=== PATIENT | female | born 1935 | race Caucasian/White ===

== ENCOUNTER 2017-01-24 01:56 | Emergency (ER) | payer MEDICARE, BC ==
[~2017-01-24] VITALS: Ht 162.6 cm; Wt 62.0 kg
[~2017-01-24 01:56] MED LIST: ACET-1600 PO; AMLO5TAB2 PO; ASCO500T8 PO; ASPI-515 PO; ATOR40TA78 PO; CARB1TAB22 PO; CARB1TAB43 PO; CHOL200012 PO; CRANBERRY PILLS PO; DILT30TA33 PO; DONE10TA14 PO; FOLI-17 PO; GLUC-149 PO; LEVO75TA5 PO; MIRT15TA4 PO; QUET25TA5 PO; TROS20TA2 PO
[2017-01-24 03:23] VITALS: BP 124/63
== END 2017-01-24 03:25 | disposition home or self-care (01) ==
LOC: ED 02:47
DX: S09.90XA Unspecified injury of head, initial encounter (principal); W18.39XA Other fall on same level, initial encounter; Y93.89 Activity, other specified; Y92.009 Unspecified place in unspecified non-institutional (private) residence as the place of occurrence of the external cause; Y99.9 Unspecified external cause status; E03.9 Hypothyroidism, unspecified; E78.00 Pure hypercholesterolemia, unspecified
CPT/HCPCS: 70450; 99284

== ENCOUNTER 2018-01-26 11:56 | Inpatient (IN) | payer MEDICARE, BC ==
[~2018-01-26] VITALS: Ht 157.5 cm; Wt 51.8 kg
[~2018-01-26 11:56] MED LIST changes: -CHOL200012 PO; +CHOL200074 PO
[2018-01-26 14:15] LABS: ALBUMIN 3.4 g/dL (3.4-5.0); ANION GAP 6 mmol/L (5-15); CALCIUM 8.5 mg/dL (8.5-10.1); CHLORIDE 111 mmol/L (98-107); CREATININE 0.82 mg/dL (0.55-1.02)
[2018-01-26] MEDS ORDERED: MIRT15TA4 PO (14:29)
[2018-01-26] MEDS ORDERED: DILT30TA33 PO (14:29)
[2018-01-26] MEDS ORDERED: MEMA5TAB PO (14:29)
[2018-01-26] MEDS ORDERED: POLY17PO3 PO (14:29)
[2018-01-26] MEDS ORDERED: DOCU-186 PO (14:29)
[2018-01-26] MEDS ORDERED: ACET500C3 PO (14:29)
[2018-01-26] MEDS ORDERED: MIRA50TA PO (14:29)
[2018-01-26] MEDS ORDERED: MELA1TAB22 PO (14:29)
[2018-01-26] MEDS ORDERED: DONE10TA14 PO (14:29)
[2018-01-26] MEDS ORDERED: GLUC1CAP48 PO (14:29)
[2018-01-26] MEDS ORDERED: CETI10TA32 PO (14:29)
[2018-01-26] MEDS ORDERED: FAMO-79 PO (14:29)
[2018-01-26] MEDS ORDERED: SODIUM CHLORIDE FLUSH 10ML SYR IVF PRN (14:30)
[2018-01-26 15:21] LABS: BASOPHILS % (AUTO) 0 % (0-1); EOSINOPHILS % (AUTO) 0 % (1-7); LYMPHOCYTES # (AUTO) 0.44 x10^3/uL (1-3.4); LYMPHOCYTES % (AUTO) 3 % (22-44); MD SCAN; MEAN CORPUSCULAR HEMOGLOBIN 30.1 pg (27.0-34.8); MEAN CORPUSCULAR HGB CONC 33.2 g/dL (32.4-35.8); MEAN CORPUSCULAR VOLUME 90.7 fL (80-100); MEAN PLATELET VOLUME 9.1 fL (7.4-10.4); MONOCYTES # (AUTO) 0.87 x10^3/uL (0.2-0.8); MONOCYTES % (AUTO) 6 % (2-9); NEUTROPHILS # (AUTO) 12.71 x10^3/uL (1.8-6.8); NEUTROPHILS % (AUTO) 91 % (42-75); PLATELET COUNT 71 x10^3/uL (130-400); RED BLOOD COUNT 4.47 x10^6/uL (3.82-5.3)
[2018-01-26] MEDS ORDERED: ENOXAPARIN 40 MG/0.4 ML SQ SCH (16:30)
[2018-01-26] MEDS ORDERED: LABETALOL 5MG/ML, 20ML IVPush PRN (16:30)
[2018-01-26] MEDS ORDERED: ONDANSETRON 2MG/ML, 2ML IVPush PRN (16:30)
[2018-01-26] MEDS ORDERED: ONDANSETRON ODT 4 MG PO PRN (16:30)
[2018-01-26 17:08] LABS: FREE T4 (FREE THYROXINE) 1.19 ng/dL (0.76-1.46)
[2018-01-26] MEDS: CARBIDOPA/LEVODOPA 25 MG/100 MG TABLET PO SCH ×2 (18:00→19:34)
[2018-01-26] MEDS ORDERED: CARBIDOPA/LEVODOPA CR 25 MG/100 MG TABLET PO SCH (18:00)
[2018-01-26] MEDS: SODIUM CHLORIDE 0.9% 1,000 ML IV SCH (18:49)
[2018-01-26] MEDS: DILTIAZEM 30 MG TABLET PO SCH (19:30)
[2018-01-26 20:06] VITALS: BP 137/79
[2018-01-26] MEDS ORDERED: MEMANTINE 5MG TABLET PO SCH (21:00)
[2018-01-26] MEDS ORDERED: FAMOTIDINE 20 MG TABLET PO SCH (21:00)
[2018-01-26] MEDS: ACETAMINOPHEN 325 MG TABLET PO PRN (22:01)
[2018-01-26] MEDS: CHOLECALCIFEROL 1,000 UNIT TABLET PO SCH (22:02)
[2018-01-26 22:28] VITALS: BP 137/79
[2018-01-27 02:00] VITALS: BP 99/57
[2018-01-27 04:48] LABS: ALBUMIN 2.9 g/dL (3.4-5.0); ANION GAP 9 mmol/L (5-15); CALCIUM 8.2 mg/dL (8.5-10.1); CHLORIDE 112 mmol/L (98-107)
[2018-01-27 05:00] LABS: CREATININE 0.65 mg/dL (0.55-1.02)
[2018-01-27 05:01] LABS: ALANINE AMINOTRANSFERASE 7 U/L (12-78); ALKALINE PHOSPHATASE 68 U/L (45-117); BILIRUBIN,TOTAL 0.9 mg/dL (0.2-1.0); THYROID STIMULATING HORMONE 0.291 mIU/L (0.358-3.740)
[2018-01-27 05:02] LABS: MEAN CORPUSCULAR HEMOGLOBIN 30.2 pg (27.0-34.8); MEAN CORPUSCULAR HGB CONC 33.2 g/dL (32.4-35.8); MEAN CORPUSCULAR VOLUME 91.1 fL (80-100); RED BLOOD COUNT 3.65 x10^6/uL (3.82-5.3); RED CELL DISTRIBUTION WIDTH 14.8 % (9.6-15.2)
[2018-01-27] MEDS: SODIUM CHLORIDE 0.9% 1,000 ML IV SCH ×2 (05:46→08:04)
[2018-01-27 06:28] LABS: BASOPHILS # (AUTO) 0.04 x10^3/uL (0-0.1); BASOPHILS % (AUTO) 0 % (0-1); EOSINOPHILS # (AUTO) 0.13 x10^3/uL (0-0.4); EOSINOPHILS % (AUTO) 1 % (1-7); LYMPHOCYTES # (AUTO) 1.01 x10^3/uL (1-3.4); LYMPHOCYTES % (AUTO) 11 % (22-44); MD SCAN; MEAN PLATELET VOLUME 9.2 fL (7.4-10.4); MONOCYTES # (AUTO) 1.03 x10^3/uL (0.2-0.8); MONOCYTES % (AUTO) 11 % (2-9); NEUTROPHILS # (AUTO) 7.01 x10^3/uL (1.8-6.8); NEUTROPHILS % (AUTO) 76 % (42-75); PLATELET COUNT 53 x10^3/uL (130-400)
[2018-01-27 06:46] VITALS: BP 165/54
[2018-01-27] MEDS: MEMANTINE 5MG TABLET PO SCH ×2 (07:21→15:45)
[2018-01-27] MEDS: CARBIDOPA/LEVODOPA 25 MG/100 MG TABLET PO SCH ×7 (07:21→20:29)
[2018-01-27] MEDS: CARBIDOPA/LEVODOPA CR 25 MG/100 MG TABLET PO SCH ×4 (07:22→20:29)
[2018-01-27] MEDS ORDERED: LEVOTHYROXINE 75 MCG TABLET PO SCH (09:00)
[2018-01-27] MEDS ORDERED: DILTIAZEM 30 MG TABLET PO SCH (09:00)
[2018-01-27] MEDS: CHOLECALCIFEROL 1,000 UNIT TABLET PO SCH ×2 (09:21→20:30)
[2018-01-27] MEDS: DONEPEZIL 10 MG TABLET PO SCH (09:22)
[2018-01-27] MEDS: ACETAMINOPHEN 325 MG TABLET PO PRN ×2 (09:22→18:20)
[2018-01-27] MEDS: FAMOTIDINE 20 MG TABLET PO SCH ×2 (09:22→17:27)
[2018-01-27] MEDS: SENNA/DOCUSATE TABLET PO SCH (09:22)
[2018-01-27] MEDS ORDERED: CARBIDOPA/LEVODOPA CR 25 MG/100 MG TABLET PO SCH ×2 (13:30→19:30)
[2018-01-27 13:56] VITALS: BP 124/72
[2018-01-27 18:21] VITALS: BP 132/75
[2018-01-27] MEDS: DILTIAZEM 30 MG TABLET PO SCH (19:30)
[2018-01-28] MEDS: ACETAMINOPHEN 325 MG TABLET PO PRN ×2 (01:17→19:37)
[2018-01-28] MEDS: SODIUM CHLORIDE 0.9% 1,000 ML IV SCH ×2 (02:19→19:58)
[2018-01-28 02:24] VITALS: BP 167/81
[2018-01-28 04:59] LABS: MEAN CORPUSCULAR HEMOGLOBIN 30.6 pg (27.0-34.8); MEAN CORPUSCULAR HGB CONC 33.7 g/dL (32.4-35.8); MEAN CORPUSCULAR VOLUME 90.9 fL (80-100); MEAN PLATELET VOLUME 11.1 fL (7.4-10.4); PLATELET COUNT 59 x10^3/uL (130-400)
[2018-01-28 05:03] LABS: CHLORIDE 115 mmol/L (98-107)
[2018-01-28 05:11] LABS: ALANINE AMINOTRANSFERASE 8 U/L (12-78); ALBUMIN 2.9 g/dL (3.4-5.0); ALKALINE PHOSPHATASE 91 U/L (45-117); ANION GAP 8 mmol/L (5-15); BILIRUBIN,TOTAL 0.6 mg/dL (0.2-1.0); CALCIUM 7.9 mg/dL (8.5-10.1); CREATININE 0.81 mg/dL (0.55-1.02); TOTAL PROTEIN 6.2 g/dL (6.4-8.2)
[2018-01-28 05:30] LABS: BASOPHILS # (AUTO) 0.04 x10^3/uL (0-0.1); BASOPHILS % (AUTO) 1 % (0-1); EOSINOPHILS # (AUTO) 0.14 x10^3/uL (0-0.4); EOSINOPHILS % (AUTO) 2 % (1-7); LYMPHOCYTES # (AUTO) 0.76 x10^3/uL (1-3.4); LYMPHOCYTES % (AUTO) 9 % (22-44); MD SCAN; MONOCYTES # (AUTO) 0.53 x10^3/uL (0.2-0.8); MONOCYTES % (AUTO) 7 % (2-9); NEUTROPHILS # (AUTO) 6.61 x10^3/uL (1.8-6.8); NEUTROPHILS % (AUTO) 82 % (42-75)
[2018-01-28 06:46] VITALS: BP 176/78
[2018-01-28] MEDS: CARBIDOPA/LEVODOPA 25 MG/100 MG TABLET PO SCH ×7 (07:38→19:37)
[2018-01-28] MEDS: CARBIDOPA/LEVODOPA CR 25 MG/100 MG TABLET PO SCH ×4 (07:38→19:37)
[2018-01-28] MEDS: MEMANTINE 5MG TABLET PO SCH ×2 (07:38→15:47)
[2018-01-28] MEDS: DONEPEZIL 10 MG TABLET PO SCH (09:00)
[2018-01-28] MEDS: FAMOTIDINE 20 MG TABLET PO SCH ×2 (09:33→17:51)
[2018-01-28] MEDS: CHOLECALCIFEROL 1,000 UNIT TABLET PO SCH ×2 (09:34→19:58)
[2018-01-28] MEDS: SENNA/DOCUSATE TABLET PO SCH (09:34)
[2018-01-28] MEDS: NEUTRA PHOS K 250 MG TABLET PO SCH ×3 (11:51→19:55)
[2018-01-28 12:25] VITALS: BP 172/96
[2018-01-28 19:20] VITALS: BP 165/88
[2018-01-28] MEDS: DILTIAZEM 30 MG TABLET PO SCH (19:30)
[2018-01-28] MEDS ORDERED: CARBIDOPA/LEVODOPA CR 25 MG/100 MG TABLET PO SCH (19:30)
[2018-01-29 01:13] VITALS: BP 153/78
[2018-01-29 07:20] VITALS: BP_SYST 176; BP_SYST 199; BP_DIAS 89; BP_DIAS 90
[2018-01-29 07:39] LABS: ANION GAP 6 mmol/L (5-15); CALCIUM 8.2 mg/dL (8.5-10.1); CHLORIDE 115 mmol/L (98-107); CREATININE 0.49 mg/dL (0.55-1.02)
[2018-01-29 07:55] LABS: BASOPHILS % (AUTO) 0 % (0-1); EOSINOPHILS # (AUTO) 0.12 x10^3/uL (0-0.4); EOSINOPHILS % (AUTO) 2 % (1-7); LYMPHOCYTES # (AUTO) 0.94 x10^3/uL (1-3.4); LYMPHOCYTES % (AUTO) 12 % (22-44); MD SCAN; MEAN CORPUSCULAR HEMOGLOBIN 29.7 pg (27.0-34.8); MEAN PLATELET VOLUME 9.9 fL (7.4-10.4); MONOCYTES # (AUTO) 0.49 x10^3/uL (0.2-0.8); MONOCYTES % (AUTO) 6 % (2-9); NEUTROPHILS # (AUTO) 6.47 x10^3/uL (1.8-6.8); NEUTROPHILS % (AUTO) 81 % (42-75); PLATELET COUNT 70 x10^3/uL (130-400); RED BLOOD COUNT 3.76 x10^6/uL (3.82-5.3)
[2018-01-29] MEDS: CARBIDOPA/LEVODOPA 25 MG/100 MG TABLET PO SCH ×7 (08:03→19:32)
[2018-01-29] MEDS: CARBIDOPA/LEVODOPA CR 25 MG/100 MG TABLET PO SCH ×5 (08:03→19:42)
[2018-01-29] MEDS: SENNA/DOCUSATE TABLET PO SCH (08:43)
[2018-01-29] MEDS: ACETAMINOPHEN 325 MG TABLET PO PRN ×2 (08:43→20:45)
[2018-01-29] MEDS: MEMANTINE 5MG TABLET PO SCH ×2 (08:43→16:49)
[2018-01-29] MEDS: NEUTRA PHOS K 250 MG TABLET PO SCH ×3 (08:44→20:46)
[2018-01-29] MEDS: CHOLECALCIFEROL 1,000 UNIT TABLET PO SCH ×2 (08:44→20:46)
[2018-01-29] MEDS: DONEPEZIL 10 MG TABLET PO SCH (08:45)
[2018-01-29] MEDS: FAMOTIDINE 20 MG TABLET PO SCH ×2 (08:46→17:17)
[2018-01-29 14:00] VITALS: BP 134/70
[2018-01-29] MEDS: SODIUM CHLORIDE 0.9% 1,000 ML IV SCH (14:12)
[2018-01-29] MEDS: DILTIAZEM 30 MG TABLET PO SCH (19:30)
[2018-01-29 19:50] VITALS: BP 150/87
[2018-01-30 01:16] VITALS: BP 142/83
[2018-01-30] MEDS: SODIUM CHLORIDE 0.9% 1,000 ML IV SCH ×2 (03:30→03:31)
[2018-01-30 07:03] VITALS: BP 197/94
[2018-01-30] MEDS: MEMANTINE 5MG TABLET PO SCH (07:29)
[2018-01-30] MEDS: CARBIDOPA/LEVODOPA CR 25 MG/100 MG TABLET PO SCH ×2 (07:30→11:27)
[2018-01-30] MEDS: CARBIDOPA/LEVODOPA 25 MG/100 MG TABLET PO SCH ×3 (07:30→11:26)
[2018-01-30 07:31] LABS: ALBUMIN 2.5 g/dL (3.4-5.0); ANION GAP 8 mmol/L (5-15); CALCIUM 7.6 mg/dL (8.5-10.1); CHLORIDE 114 mmol/L (98-107); CREATININE 0.56 mg/dL (0.55-1.02)
[2018-01-30] MEDS ORDERED: CARBIDOPA/LEVODOPA CR 25 MG/100 MG TABLET PO PRN (09:00)
[2018-01-30] MEDS: SENNA/DOCUSATE TABLET PO SCH (09:00)
[2018-01-30 09:35] VITALS: BP 135/65
[2018-01-30] MEDS: NEUTRA PHOS K 250 MG TABLET PO SCH (09:36)
[2018-01-30] MEDS: DONEPEZIL 10 MG TABLET PO SCH (09:37)
[2018-01-30] MEDS: FAMOTIDINE 20 MG TABLET PO SCH (09:37)
[2018-01-30] MEDS: CHOLECALCIFEROL 1,000 UNIT TABLET PO SCH (09:37)
[2018-01-30] MEDS ORDERED: DILT30TA33 PO (10:43)
[2018-01-30] MEDS ORDERED: MAGNESIUM SULFATE PMX 2GM/50ML 50 ML IV ONE (11:00)
[2018-01-30] MEDS ORDERED: POTASSIUM CHLORIDE 20 MEQ TAB.ER.PRT PO ONE (11:00)
[2018-01-30] MEDS ORDERED: ENOXAPARIN 30 MG/0.3 ML SQ SCH (16:00)
== END 2018-01-30 12:21 | disposition home or self-care (01) | DRG 542 ==
LOC: ED 12:06 → EDIP 14:13 → 3NE 16:32
PROVIDERS: ADMIT Internal Medicine; ATTEND Internal Medicine
DX: M84.48XA Pathological fracture, other site, initial encounter for fracture (principal); E43 Unspecified severe protein-calorie malnutrition; D69.6 Thrombocytopenia, unspecified; G20 Parkinson's disease; F03.90 Unspecified dementia, unspecified severity, without behavioral disturbance, psychotic disturbance, mood disturbance, and anxiety; Z95.1 Presence of aortocoronary bypass graft; M84.459A Pathological fracture, hip, unspecified, initial encounter for fracture; E03.9 Hypothyroidism, unspecified; I25.10 Atherosclerotic heart disease of native coronary artery without angina pectoris; R53.81 Other malaise; E78.00 Pure hypercholesterolemia, unspecified; D72.829 Elevated white blood cell count, unspecified; W18.39XA Other fall on same level, initial encounter; I10 Essential (primary) hypertension; K21.9 Gastro-esophageal reflux disease without esophagitis; K59.00 Constipation, unspecified; R29.6 Repeated falls; M81.0 Age-related osteoporosis without current pathological fracture; Z66 Do not resuscitate; Z83.3 Family history of diabetes mellitus; Z68.20 Body mass index [BMI] 20.0-20.9, adult; Z95.5 Presence of coronary angioplasty implant and graft; Z88.6 Allergy status to analgesic agent; Z79.899 Other long term (current) drug therapy; Z79.82 Long term (current) use of aspirin; Y93.89 Activity, other specified; Y99.8 Other external cause status; Y92.128 Other place in nursing home as the place of occurrence of the external cause
CPT/HCPCS: 36415; 72110; 72158; 72170; 72192; 80048; 80053; 82040; 83735; 84100; 84439; 84443; 85025; 99285; J7030

== ENCOUNTER 2018-05-17 20:31 | Inpatient (IN) | payer MEDICARE, BC ==
[~2018-05-17] VITALS: Ht 152.4 cm; Wt 57.2 kg
[~2018-05-17 20:31] MED LIST changes: +ACET500C3 PO; -AMLO5TAB2 PO; +AMLO5TAB7 PO; +CETI10TA32 PO; +DOCU-186 PO; +FAMO-79 PO; +GLUC1CAP48 PO; +MELA1TAB22 PO; +MEMA5TAB PO; +MIRA50TA PO; +POLY17PO3 PO
[2018-05-17] MEDS ORDERED: MORPHINE SULFATE 4 MG/ML, 1ML ONE ×2 (20:48→23:00)
[2018-05-17] MEDS: MORPHINE SULFATE 4 MG/ML, 1ML IVPush PRN ×2 (20:51→23:15)
[2018-05-17] MEDS ORDERED: CARB1TAB22 PO (21:48)
[2018-05-17] MEDS ORDERED: MIRT15TA4 PO (21:49)
[2018-05-17] MEDS ORDERED: CARB1TAB44 PO (21:49)
[2018-05-17] MEDS ORDERED: CARV3.122 PO (21:49)
[2018-05-17] MEDS ORDERED: SUCR1TAB PO (21:49)
[2018-05-17] MEDS ORDERED: LEVO50TA5 PO (21:49)
[2018-05-17] MEDS ORDERED: PANT40TA5 PO (21:49)
[2018-05-17] MEDS ORDERED: CARB1TAB43 PO (21:49)
[2018-05-17] MEDS ORDERED: CETI10TA18 PO (21:49)
[2018-05-17] MEDS ORDERED: GLUC1TAB35 PO (21:49)
[2018-05-17] MEDS ORDERED: [UNRECOGNIZED DRUG - REMARK] PO (21:49)
[2018-05-17] MEDS ORDERED: BISM262O17 PO (21:49)
[2018-05-17] MEDS ORDERED: MEMA5TAB PO (21:49)
[2018-05-17] MEDS ORDERED: CARBIDOPA/LEVODOPA CR 50 MG/200 MG TABLET PO SCH (23:30)
[2018-05-17] MEDS ORDERED: POLYETHYLENE GLYCOL 17 GM PACKET PO PRN (23:30)
[2018-05-17] MEDS ORDERED: CARBIDOPA/LEVODOPA 25 MG/100 MG TABLET PO SCH (23:30)
[2018-05-17] MEDS ORDERED: ONDANSETRON 2MG/ML, 2ML IVPush PRN (23:30)
[2018-05-17] MEDS: CHOLECALCIFEROL 1,000 UNIT TABLET PO SCH (23:30)
[2018-05-17] MEDS ORDERED: BISACODYL 10 MG SUPP PR PRN (23:30)
[2018-05-17] MEDS ORDERED: morphine SULFATE 10 MG/ML, 1ML IVPush PRN (23:30)
[2018-05-18] VITALS (8 sets, daily range): BP systolic 97–182; BP diastolic 54–87
[2018-05-18] MEDS: MIRTAZAPINE 15 MG TABLET PO SCH ×2 (00:31→22:41)
[2018-05-18] MEDS: SODIUM CHLORIDE FLUSH 10ML SYR IVF SCH ×3 (00:31→19:51)
[2018-05-18] MEDS: CARVEDILOL 3.125 MG TABLET PO SCH ×3 (00:31→22:41)
[2018-05-18] MEDS: MEMANTINE 5MG TABLET PO SCH ×2 (00:36→22:41)
[2018-05-18] MEDS: ENALAPRILAT 1.25 MG/ML, 2ML IVPush PRN (02:46)
[2018-05-18 05:33] LABS: MEAN CORPUSCULAR HEMOGLOBIN 30.6 pg (27.0-34.8); MEAN CORPUSCULAR HGB CONC 33.2 g/dL (32.4-35.8); MEAN CORPUSCULAR VOLUME 91.9 fL (80-100); RED BLOOD COUNT 4.11 x10^6/uL (3.82-5.3); RED CELL DISTRIBUTION WIDTH 15.8 % (9.6-15.2)
[2018-05-18 05:37] LABS: CALCIUM 8.5 mg/dL (8.5-10.1); CHLORIDE 109 mmol/L (98-107)
[2018-05-18 05:44] LABS: ALANINE AMINOTRANSFERASE 10 U/L (12-78); ALBUMIN 3.6 g/dL (3.4-5.0); ALKALINE PHOSPHATASE 92 U/L (45-117); ANION GAP 7 mmol/L (5-15); BILIRUBIN,TOTAL 0.4 mg/dL (0.2-1.0); CREATININE 1.02 mg/dL (0.55-1.02); TOTAL PROTEIN 7.2 g/dL (6.4-8.2)
[2018-05-18 05:57] LABS: BASOPHILS # (AUTO) 0.04 x10^3/uL (0-0.1); BASOPHILS % (AUTO) 0 % (0-1); EOSINOPHILS % (AUTO) 1 % (1-7); LYMPHOCYTES # (AUTO) 1.21 x10^3/uL (1-3.4); LYMPHOCYTES % (AUTO) 14 % (22-44); MD SCAN; MEAN PLATELET VOLUME 10.3 fL (7.4-10.4); MONOCYTES # (AUTO) 0.74 x10^3/uL (0.2-0.8); MONOCYTES % (AUTO) 8 % (2-9); NEUTROPHILS # (AUTO) 6.78 x10^3/uL (1.8-6.8); NEUTROPHILS % (AUTO) 77 % (42-75); PLATELET COUNT 91 x10^3/uL (130-400)
[2018-05-18] MEDS ORDERED: LEVOTHYROXINE 50 MCG TABLET PO SCH (07:30)
[2018-05-18] MEDS: CARBIDOPA/LEVODOPA CR 25 MG/100 MG TABLET PO SCH ×3 (07:48→15:25)
[2018-05-18] MEDS: CARBIDOPA/LEVODOPA 25 MG/100 MG TABLET PO SCH ×7 (07:48→19:50)
[2018-05-18] MEDS: SENNA/DOCUSATE TABLET PO SCH (09:00)
[2018-05-18] MEDS: CETIRIZINE 10 MG TABLET PO SCH (09:00)
[2018-05-18] MEDS: CHOLECALCIFEROL 1,000 UNIT TABLET PO SCH ×2 (09:00→22:41)
[2018-05-18] MEDS: PANTOPROZOLE 40MG TABLET PO SCH (09:00)
[2018-05-18] MEDS: TEMPLATE NON-FORMULARY MED. (Mirabegron** (Myrbetriq**) 50 MG) HOMEMEDPO SCH (09:00)
[2018-05-18] MEDS ORDERED: TEMPLATE NON-FORMULARY MED. (Gluc/Chon-Msm#1/Vit C/Mang/Bor** (Glucosa-Chond-Msm Complex C PO SCH (09:00)
[2018-05-18] MEDS: ACETAMINOPHEN 325 MG TABLET PO PRN ×4 (09:32→23:56)
[2018-05-18] MEDS: DILTIAZEM 30 MG TABLET PO SCH (09:47)
[2018-05-18] MEDS: DONEPEZIL 10 MG TABLET PO SCH (09:47)
[2018-05-18] MEDS: DOCUSATE 100 MG CAPSULE PO SCH (11:33)
[2018-05-18 15:45] LABS: MICROSCOPIC AUTO
[2018-05-18 15:51] LABS: CULTURE INDICATED? YES
[2018-05-18 15:52] LABS: FREE T4 (FREE THYROXINE) 0.43 ng/dL (0.76-1.46)
[2018-05-18] MEDS: LIOTHYRONINE 5 MCG TABLET PO SCH (17:11)
[2018-05-18] MEDS: LEVOTHYROXINE 100 MCG INJ IVPush SCH (17:51)
[2018-05-18] MEDS: CARBIDOPA/LEVODOPA CR 50 MG/200 MG TABLET PO SCH (19:50)
[2018-05-18] MEDS: MELATONIN 3 MG TABLET PO SCH (22:45)
[2018-05-19] VITALS (7 sets, daily range): BP systolic 108–184; BP diastolic 67–93
[2018-05-19] MEDS ORDERED: HALOPERIDOL 5 MG/ML IM ONE
[2018-05-19 05:45] LABS: CHLORIDE 109 mmol/L (98-107)
[2018-05-19 06:02] LABS: ANION GAP 6 mmol/L (5-15); CALCIUM 8.5 mg/dL (8.5-10.1); CREATININE 0.93 mg/dL (0.55-1.02); FREE T4 (FREE THYROXINE) 0.66 ng/dL (0.76-1.46); MEAN CORPUSCULAR HEMOGLOBIN 31.2 pg (27.0-34.8); MEAN CORPUSCULAR HGB CONC 33.8 g/dL (32.4-35.8); MEAN CORPUSCULAR VOLUME 92.3 fL (80-100); MEAN PLATELET VOLUME 10.6 fL (7.4-10.4); PLATELET COUNT 79 x10^3/uL (130-400); RED BLOOD COUNT 3.58 x10^6/uL (3.82-5.3); RED CELL DISTRIBUTION WIDTH 15.2 % (9.6-15.2)
[2018-05-19] MEDS ORDERED: POTASSIUM CHLORIDE 40 MEQ in SODIUM CHLORIDE 0.9% 500 ML IV ONE (06:30)
[2018-05-19 06:41] LABS: BASOPHILS # (AUTO) 0.04 x10^3/uL (0-0.1); BASOPHILS % (AUTO) 1 % (0-1); EOSINOPHILS # (AUTO) 0.18 x10^3/uL (0-0.4); EOSINOPHILS % (AUTO) 2 % (1-7); LYMPHOCYTES # (AUTO) 0.89 x10^3/uL (1-3.4); LYMPHOCYTES % (AUTO) 12 % (22-44); MD SCAN; MONOCYTES # (AUTO) 0.63 x10^3/uL (0.2-0.8); MONOCYTES % (AUTO) 8 % (2-9); NEUTROPHILS # (AUTO) 5.93 x10^3/uL (1.8-6.8); NEUTROPHILS % (AUTO) 77 % (42-75)
[2018-05-19] MEDS: CARBIDOPA/LEVODOPA 25 MG/100 MG TABLET PO SCH ×7 (07:38→19:46)
[2018-05-19] MEDS: CARBIDOPA/LEVODOPA CR 25 MG/100 MG TABLET PO SCH ×3 (07:38→15:35)
[2018-05-19] MEDS: TEMPLATE NON-FORMULARY MED. (Mirabegron** (Myrbetriq**) 50 MG) HOMEMEDPO SCH (09:00)
[2018-05-19] MEDS: CARVEDILOL 3.125 MG TABLET PO SCH ×2 (09:15→19:46)
[2018-05-19] MEDS: MELATONIN 3 MG TABLET PO SCH ×2 (09:15→19:47)
[2018-05-19] MEDS: PANTOPROZOLE 40MG TABLET PO SCH (09:15)
[2018-05-19] MEDS: CHOLECALCIFEROL 1,000 UNIT TABLET PO SCH ×2 (09:16→19:46)
[2018-05-19] MEDS: SENNA/DOCUSATE TABLET PO SCH (09:16)
[2018-05-19] MEDS: LIOTHYRONINE 5 MCG TABLET PO SCH (09:16)
[2018-05-19] MEDS: DONEPEZIL 10 MG TABLET PO SCH (09:16)
[2018-05-19] MEDS: DILTIAZEM 30 MG TABLET PO SCH (09:17)
[2018-05-19] MEDS: DOCUSATE 100 MG CAPSULE PO SCH (09:17)
[2018-05-19] MEDS: SODIUM CHLORIDE FLUSH 10ML SYR IVF SCH ×2 (09:18→19:50)
[2018-05-19] MEDS: CETIRIZINE 10 MG TABLET PO SCH (09:18)
[2018-05-19] MEDS: CEFTRIAXONE 1,000 MG in SODIUM CHLORIDE 0.9% 50 ML IV SCH (10:18)
[2018-05-19] MEDS: LEVOTHYROXINE 100 MCG INJ IVPush SCH (10:38)
[2018-05-19] MEDS: ACETAMINOPHEN 325 MG TABLET PO PRN ×2 (11:44→19:47)
[2018-05-19] MEDS: MEMANTINE 5MG TABLET PO SCH (19:46)
[2018-05-19] MEDS: MIRTAZAPINE 15 MG TABLET PO SCH (19:46)
[2018-05-19] MEDS: SODIUM CHLORIDE 0.9% 1,000 ML IV SCH (19:47)
[2018-05-19] MEDS: CARBIDOPA/LEVODOPA CR 50 MG/200 MG TABLET PO SCH (19:50)
[2018-05-19] MEDS: ENALAPRILAT 1.25 MG/ML, 2ML IVPush PRN (20:18)
[2018-05-20 00:35] VITALS: BP 98/53
[2018-05-20] MEDS ORDERED: MORPHINE SULFATE 4 MG/ML, 1ML IVPush PRN (01:30)
[2018-05-20] MEDS: ACETAMINOPHEN 325 MG TABLET PO PRN ×3 (02:45→19:55)
[2018-05-20 05:24] LABS: ALBUMIN 2.8 g/dL (3.4-5.0); ANION GAP 5 mmol/L (5-15); CHLORIDE 113 mmol/L (98-107); CREATININE 0.67 mg/dL (0.55-1.02); MEAN CORPUSCULAR HEMOGLOBIN 31.4 pg (27.0-34.8); MEAN CORPUSCULAR HGB CONC 33.8 g/dL (32.4-35.8); MEAN CORPUSCULAR VOLUME 92.9 fL (80-100); MEAN PLATELET VOLUME 11.3 fL (7.4-10.4); PLATELET COUNT 73 x10^3/uL (130-400); RED BLOOD COUNT 3.21 x10^6/uL (3.82-5.3); RED CELL DISTRIBUTION WIDTH 15.2 % (9.6-15.2)
[2018-05-20 05:52] LABS: BASOPHILS # (AUTO) 0.03 x10^3/uL (0-0.1); BASOPHILS % (AUTO) 0 % (0-1); EOSINOPHILS # (AUTO) 0.13 x10^3/uL (0-0.4); EOSINOPHILS % (AUTO) 2 % (1-7); LYMPHOCYTES # (AUTO) 0.93 x10^3/uL (1-3.4); LYMPHOCYTES % (AUTO) 12 % (22-44); MD SCAN; MONOCYTES # (AUTO) 0.65 x10^3/uL (0.2-0.8); MONOCYTES % (AUTO) 8 % (2-9); NEUTROPHILS # (AUTO) 5.94 x10^3/uL (1.8-6.8); NEUTROPHILS % (AUTO) 77 % (42-75)
[2018-05-20 07:29] VITALS: BP 143/63
[2018-05-20] MEDS ORDERED: POTASSIUM CHLORIDE 20 MEQ TAB.ER.PRT PO ONE (07:30)
[2018-05-20] MEDS: CARBIDOPA/LEVODOPA 25 MG/100 MG TABLET PO SCH ×7 (07:46→19:54)
[2018-05-20] MEDS: CARBIDOPA/LEVODOPA CR 25 MG/100 MG TABLET PO SCH ×3 (07:47→15:31)
[2018-05-20] MEDS: CEFTRIAXONE 1,000 MG in SODIUM CHLORIDE 0.9% 50 ML IV SCH (09:55)
[2018-05-20] MEDS: CETIRIZINE 10 MG TABLET PO SCH (09:55)
[2018-05-20] MEDS: DILTIAZEM 30 MG TABLET PO SCH (09:56)
[2018-05-20] MEDS: CHOLECALCIFEROL 1,000 UNIT TABLET PO SCH ×2 (09:59→19:55)
[2018-05-20] MEDS: CARVEDILOL 3.125 MG TABLET PO SCH ×2 (09:59→19:55)
[2018-05-20] MEDS: DONEPEZIL 10 MG TABLET PO SCH (10:00)
[2018-05-20] MEDS: PANTOPROZOLE 40MG TABLET PO SCH (10:00)
[2018-05-20] MEDS: DOCUSATE 100 MG CAPSULE PO SCH (10:01)
[2018-05-20] MEDS: SENNA/DOCUSATE TABLET PO SCH (10:01)
[2018-05-20] MEDS: LEVOTHYROXINE 100 MCG INJ IVPush SCH (10:02)
[2018-05-20] MEDS: SODIUM CHLORIDE FLUSH 10ML SYR IVF SCH ×2 (10:02→19:56)
[2018-05-20] MEDS: SODIUM CHLORIDE 0.9% 1,000 ML IV SCH ×2 (10:08→19:55)
[2018-05-20 13:17] VITALS: BP 139/69
[2018-05-20 18:45] VITALS: BP_SYST 133; BP_SYST 148; BP_DIAS 70; BP_DIAS 81
[2018-05-20] MEDS: MELATONIN 3 MG TABLET PO SCH (19:54)
[2018-05-20] MEDS: MIRTAZAPINE 15 MG TABLET PO SCH (19:54)
[2018-05-20] MEDS: MEMANTINE 5MG TABLET PO SCH (19:55)
[2018-05-20] MEDS: CARBIDOPA/LEVODOPA CR 50 MG/200 MG TABLET PO SCH (19:55)
[2018-05-21 01:25] VITALS: BP 151/86
[2018-05-21 02:00] VITALS: BP 118/69
[2018-05-21 05:06] LABS: MEAN CORPUSCULAR HEMOGLOBIN 29.8 pg (27.0-34.8); MEAN CORPUSCULAR HGB CONC 32.6 g/dL (32.4-35.8); MEAN CORPUSCULAR VOLUME 91.3 fL (80-100); RED BLOOD COUNT 3.21 x10^6/uL (3.82-5.3); RED CELL DISTRIBUTION WIDTH 15.4 % (9.6-15.2)
[2018-05-21 05:08] LABS: ALBUMIN 2.6 g/dL (3.4-5.0); ANION GAP 5 mmol/L (5-15); CALCIUM 8.1 mg/dL (8.5-10.1); CHLORIDE 116 mmol/L (98-107); CREATININE 0.59 mg/dL (0.55-1.02)
[2018-05-21 06:09] LABS: BASOPHILS # (AUTO) 0.03 x10^3/uL (0-0.1); BASOPHILS % (AUTO) 0 % (0-1); EOSINOPHILS # (AUTO) 0.12 x10^3/uL (0-0.4); EOSINOPHILS % (AUTO) 2 % (1-7); LYMPHOCYTES % (AUTO) 17 % (22-44); MD SCAN; MEAN PLATELET VOLUME 9.4 fL (7.4-10.4); MONOCYTES # (AUTO) 0.53 x10^3/uL (0.2-0.8); MONOCYTES % (AUTO) 8 % (2-9); NEUTROPHILS # (AUTO) 4.71 x10^3/uL (1.8-6.8); NEUTROPHILS % (AUTO) 73 % (42-75); PLATELET COUNT 67 x10^3/uL (130-400)
[2018-05-21] MEDS: SODIUM CHLORIDE 0.9% 1,000 ML IV SCH ×2 (06:14→16:33)
[2018-05-21] MEDS ORDERED: POTASSIUM CHLORIDE 20 MEQ TAB.ER.PRT PO ONE (07:00)
[2018-05-21 07:14] VITALS: BP 168/76
[2018-05-21] MEDS: CARBIDOPA/LEVODOPA 25 MG/100 MG TABLET PO SCH ×7 (08:01→19:30)
[2018-05-21] MEDS: CARBIDOPA/LEVODOPA CR 25 MG/100 MG TABLET PO SCH ×3 (08:02→16:31)
[2018-05-21] MEDS: SODIUM CHLORIDE FLUSH 10ML SYR IVF SCH ×2 (09:00→20:10)
[2018-05-21] MEDS: PANTOPROZOLE 40MG TABLET PO SCH (10:14)
[2018-05-21] MEDS: DILTIAZEM 30 MG TABLET PO SCH (10:16)
[2018-05-21] MEDS: CARVEDILOL 3.125 MG TABLET PO SCH ×2 (10:17→20:09)
[2018-05-21] MEDS: CETIRIZINE 10 MG TABLET PO SCH (10:18)
[2018-05-21] MEDS: DOCUSATE 100 MG CAPSULE PO SCH (10:19)
[2018-05-21] MEDS: SENNA/DOCUSATE TABLET PO SCH (10:19)
[2018-05-21] MEDS: DONEPEZIL 10 MG TABLET PO SCH (10:20)
[2018-05-21] MEDS: CHOLECALCIFEROL 1,000 UNIT TABLET PO SCH ×2 (10:21→20:08)
[2018-05-21] MEDS: LEVOTHYROXINE 100 MCG TABLET PO SCH (10:25)
[2018-05-21 11:14] LABS: OCCULT BLOOD NEGATIVE (NEGATIVE)
[2018-05-21] MEDS: CEFTRIAXONE 1,000 MG in SODIUM CHLORIDE 0.9% 50 ML IV SCH (11:37)
[2018-05-21 15:05] VITALS: BP 142/84
[2018-05-21 20:00] VITALS: BP 153/77
[2018-05-21] MEDS: MIRTAZAPINE 15 MG TABLET PO SCH (20:09)
[2018-05-21] MEDS: MELATONIN 3 MG TABLET PO SCH (20:09)
[2018-05-21] MEDS: CARBIDOPA/LEVODOPA CR 50 MG/200 MG TABLET PO SCH (20:09)
[2018-05-21] MEDS: MEMANTINE 5MG TABLET PO SCH (20:10)
[2018-05-22 02:00] VITALS: BP 163/79
[2018-05-22] MEDS: SODIUM CHLORIDE 0.9% 1,000 ML IV SCH (02:14)
[2018-05-22 05:27] LABS: MEAN CORPUSCULAR HEMOGLOBIN 31.2 pg (27.0-34.8); MEAN CORPUSCULAR HGB CONC 33.7 g/dL (32.4-35.8); MEAN CORPUSCULAR VOLUME 92.7 fL (80-100); RED BLOOD COUNT 3.47 x10^6/uL (3.82-5.3); RED CELL DISTRIBUTION WIDTH 15.3 % (9.6-15.2)
[2018-05-22 05:34] LABS: CALCIUM 8.2 mg/dL (8.5-10.1); CHLORIDE 115 mmol/L (98-107)
[2018-05-22 05:37] LABS: ALBUMIN 2.8 g/dL (3.4-5.0); ANION GAP 7 mmol/L (5-15); CREATININE 0.59 mg/dL (0.55-1.02)
[2018-05-22] MEDS ORDERED: POTASSIUM CHLORIDE 20 MEQ TAB.ER.PRT PO ONE (06:00)
[2018-05-22] MEDS: LEVOTHYROXINE 100 MCG TABLET PO SCH (06:07)
[2018-05-22 06:48] LABS: BASOPHILS # (AUTO) 0.04 x10^3/uL (0-0.1); BASOPHILS % (AUTO) 1 % (0-1); EOSINOPHILS # (AUTO) 0.14 x10^3/uL (0-0.4); EOSINOPHILS % (AUTO) 2 % (1-7); LYMPHOCYTES # (AUTO) 0.98 x10^3/uL (1-3.4); LYMPHOCYTES % (AUTO) 14 % (22-44); MD SCAN; MEAN PLATELET VOLUME 11.4 fL (7.4-10.4); MONOCYTES # (AUTO) 0.47 x10^3/uL (0.2-0.8); MONOCYTES % (AUTO) 7 % (2-9); NEUTROPHILS # (AUTO) 5.15 x10^3/uL (1.8-6.8); NEUTROPHILS % (AUTO) 76 % (42-75); PLATELET COUNT 83 x10^3/uL (130-400)
[2018-05-22 07:26] VITALS: BP 175/97
[2018-05-22] MEDS: CARBIDOPA/LEVODOPA CR 25 MG/100 MG TABLET PO SCH ×3 (07:40→15:39)
[2018-05-22] MEDS: CARBIDOPA/LEVODOPA 25 MG/100 MG TABLET PO SCH ×6 (07:40→17:06)
[2018-05-22] MEDS: CHOLECALCIFEROL 1,000 UNIT TABLET PO SCH (09:27)
[2018-05-22] MEDS: CARVEDILOL 3.125 MG TABLET PO SCH (09:27)
[2018-05-22] MEDS: CETIRIZINE 10 MG TABLET PO SCH (09:27)
[2018-05-22] MEDS: DILTIAZEM 30 MG TABLET PO SCH (09:27)
[2018-05-22] MEDS: SENNA/DOCUSATE TABLET PO SCH (09:27)
[2018-05-22] MEDS: DONEPEZIL 10 MG TABLET PO SCH (09:27)
[2018-05-22] MEDS: DOCUSATE 100 MG CAPSULE PO SCH (09:27)
[2018-05-22] MEDS: CEFTRIAXONE 1,000 MG in SODIUM CHLORIDE 0.9% 50 ML IV SCH (09:28)
[2018-05-22] MEDS: PANTOPROZOLE 40MG TABLET PO SCH (09:28)
[2018-05-22] MEDS: SODIUM CHLORIDE FLUSH 10ML SYR IVF SCH (10:19)
[2018-05-22] MEDS: ACETAMINOPHEN 325 MG TABLET PO PRN (11:29)
[2018-05-22 12:39] VITALS: BP 119/68
[2018-05-22 12:42] VITALS: BP 113/67
[2018-05-22] MEDS ORDERED: LEVO100T PO (14:55)
[2018-05-22] MEDS ORDERED: CEFD300C37 PO (14:57)
== END 2018-05-22 17:11 | DRG 542 ==
LOC: ED 21:43 → EDIP 22:43 → 4NOR 23:44 → 5SO 05-18 16:59
PROVIDERS: ADMIT Hospitalist; ATTEND Hospitalist
PROC: 0T9B70Z Drainage of Bladder with Drainage Device, Via Natural or Artificial Opening (ICD-10-PCS; principal; 2018-05-18)
DX: M80.022A Age-related osteoporosis with current pathological fracture, left humerus, initial encounter for fracture (principal); G93.40 Encephalopathy, unspecified; N39.0 Urinary tract infection, site not specified; G20 Parkinson's disease; D69.6 Thrombocytopenia, unspecified; E03.9 Hypothyroidism, unspecified; E78.00 Pure hypercholesterolemia, unspecified; E87.6 Hypokalemia; F03.90 Unspecified dementia, unspecified severity, without behavioral disturbance, psychotic disturbance, mood disturbance, and anxiety; G89.11 Acute pain due to trauma; I10 Essential (primary) hypertension; W01.0XXA Fall on same level from slipping, tripping and stumbling without subsequent striking against object, initial encounter; I25.10 Atherosclerotic heart disease of native coronary artery without angina pectoris; Z66 Do not resuscitate; I48.91 Unspecified atrial fibrillation; K21.9 Gastro-esophageal reflux disease without esophagitis; Z95.1 Presence of aortocoronary bypass graft; Z95.5 Presence of coronary angioplasty implant and graft; Z88.8 Allergy status to other drugs, medicaments and biological substances; Y92.89 Other specified places as the place of occurrence of the external cause; Y93.89 Activity, other specified
CPT/HCPCS: 36415; 70450; 71045; 76700; 80048; 80053; 81001; 82040; 82140; 82272; 82607; 83735; 84439; 84443; 84481; 85025; 87040; 87077; 87086; 87186; 96374; 96376; G0378; J0696; J3480; J7030; J7040

== ENCOUNTER 2018-07-19 02:19 | Inpatient (IN) | payer MEDICARE, BC ==
[~2018-07-19] VITALS: Ht 167.6 cm; Wt 66.7 kg
[~2018-07-19 02:19] MED LIST changes: +BISM262O17 PO; +CARB1TAB44 PO; +CARV3.122 PO; +CEFD300C37 PO; +CETI10TA18 PO; +GLUC1TAB35 PO; +LEVO100T PO; +LEVO50TA5 PO; +PANT40TA5 PO; +SUCR1TAB PO; +[UNRECOGNIZED DRUG - REMARK] PO
[2018-07-19] MEDS ORDERED: SODIUM CHLORIDE 0.9% 1,000 ML IV ONE (02:23)
[2018-07-19] MEDS ORDERED: ONDANSETRON 2MG/ML, 2ML IVPush ONE (02:30)
[2018-07-19] MEDS ORDERED: SODIUM CHLORIDE FLUSH 10ML SYR IVF ONE (02:30)
[2018-07-19] MEDS ORDERED: MORPHINE SULFATE 4 MG/ML, 1ML IVPush PRN (02:30)
[2018-07-19 02:41] LABS: BASOPHILS # (AUTO) 0.03 x10^3/uL (0-0.1); BASOPHILS % (AUTO) 0 % (0-1); EOSINOPHILS # (AUTO) 0.13 x10^3/uL (0-0.4); EOSINOPHILS % (AUTO) 2 % (1-7); LYMPHOCYTES # (AUTO) 0.97 x10^3/uL (1-3.4); LYMPHOCYTES % (AUTO) 13 % (22-44); MD NO; MEAN CORPUSCULAR HEMOGLOBIN 30.1 pg (27.0-34.8); MEAN CORPUSCULAR HGB CONC 33.4 g/dL (32.4-35.8); MEAN CORPUSCULAR VOLUME 90.2 fL (80-100); MEAN PLATELET VOLUME 10.2 fL (7.4-10.4); MONOCYTES # (AUTO) 0.37 x10^3/uL (0.2-0.8); MONOCYTES % (AUTO) 5 % (2-9); NEUTROPHILS # (AUTO) 5.99 x10^3/uL (1.8-6.8); NEUTROPHILS % (AUTO) 80 % (42-75); PLATELET COUNT 119 x10^3/uL (130-400); RED CELL DISTRIBUTION WIDTH 15.1 % (9.6-15.2)
[2018-07-19 02:52] LABS: INTERNATIONAL NORMALIZED RATIO 1.15 (0.93-1.1); PROTHROMBIN TIME 11.9 Seconds (9.6-11.5)
[2018-07-19 02:54] LABS: ALANINE AMINOTRANSFERASE 7 U/L (12-78); ALBUMIN 3.4 g/dL (3.4-5.0); ANION GAP 10 mmol/L (5-15); CALCIUM 8.4 mg/dL (8.5-10.1); CHLORIDE 111 mmol/L (98-107); CREATININE 0.61 mg/dL (0.55-1.02)
[2018-07-19 02:56] LABS: ALKALINE PHOSPHATASE 179 U/L (45-117); BILIRUBIN,TOTAL 0.5 mg/dL (0.2-1.0); TOTAL PROTEIN 6.9 g/dL (6.4-8.2)
[2018-07-19] MEDS ORDERED: ONDANSETRON 2MG/ML, 2ML ONE ×2 (03:12→16:04)
[2018-07-19] MEDS ORDERED: MORPHINE SULFATE 4 MG/ML, 1ML ONE (03:13)
[2018-07-19] MEDS ORDERED: ONDANSETRON 2MG/ML, 2ML IVPush PRN (04:30)
[2018-07-19] MEDS ORDERED: ACETAMINOPHEN 325 MG TABLET PO PRN (04:30)
[2018-07-19] MEDS ORDERED: hydrALAzine 20 MG/ML, 1ML IVPush PRN (04:30)
[2018-07-19 04:50] LABS: CULTURE INDICATED? YES; MICROSCOPIC INDICATED
[2018-07-19 05:15] LABS: ALBUMIN 3.6 g/dL (3.4-5.0); ANION GAP 9 mmol/L (5-15); CALCIUM 8.7 mg/dL (8.5-10.1); CHLORIDE 109 mmol/L (98-107); CREATININE 0.65 mg/dL (0.55-1.02)
[2018-07-19 05:45] VITALS: BP 173/87
[2018-07-19] MEDS: HEPARIN 5,000 UNITS/ML, 1ML SQ SCH ×3 (06:25→20:12)
[2018-07-19] MEDS: LEVOTHYROXINE 100 MCG TABLET PO SCH (06:25)
[2018-07-19] MEDS: SODIUM CHLORIDE 0.9% 1,000 ML IV SCH ×2 (06:33→20:07)
[2018-07-19 07:10] VITALS: BP 148/67
[2018-07-19] MEDS: DILTIAZEM 30 MG TABLET PO SCH (08:15)
[2018-07-19] MEDS: CHOLECALCIFEROL 1,000 UNIT TABLET PO SCH ×2 (08:15→20:08)
[2018-07-19] MEDS: CARBIDOPA/LEVODOPA 25 MG/100 MG TABLET PO SCH ×7 (08:15→20:12)
[2018-07-19] MEDS: CARBIDOPA/LEVODOPA CR 25 MG/100 MG TABLET PO SCH ×3 (08:15→14:35)
[2018-07-19] MEDS: POLYETHYLENE GLYCOL 17 GM PACKET PO SCH (08:16)
[2018-07-19] MEDS: CARVEDILOL 3.125 MG TABLET PO SCH ×2 (08:16→21:00)
[2018-07-19] MEDS: CEFTRIAXONE PMX 1GM/50ML 50 ML IV SCH (10:13)
[2018-07-19] MEDS ORDERED: PROPOFOL 10 MG/ML, 20ML ONE (16:04)
[2018-07-19] MEDS ORDERED: PHENYLEPHRINE 10 MG/ML ONE (16:04)
[2018-07-19] MEDS ORDERED: CEFAZOLIN 1,000 MG ONE (16:04)
[2018-07-19] MEDS ORDERED: HYDROmorphone 1 MG/ML, 1ML IV PRN (17:00)
[2018-07-19] MEDS ORDERED: DIPHENHYDRAMINE 50 MG/ML, 1ML IVPush PRN (17:00)
[2018-07-19] MEDS ORDERED: MEPERIDINE/PF 25MG/0.5ML IVPush PRN (17:00)
[2018-07-19] MEDS ORDERED: LABETALOL 5MG/ML, 20ML IV PRN (17:00)
[2018-07-19] MEDS ORDERED: hydrALAzine 20 MG/ML, 1ML IV PRN (17:00)
[2018-07-19] MEDS ORDERED: FENTANYL PF 100 MCG/2ML IV PRN (17:00)
[2018-07-19] MEDS ORDERED: OXYcodone 5 MG/5 ML ORAL.SOL UDC ONE (17:57)
[2018-07-19] MEDS: MIRTAZAPINE 15 MG TABLET PO SCH (20:08)
[2018-07-19] MEDS: MEMANTINE 5MG TABLET PO SCH (20:08)
[2018-07-19] MEDS: CARBIDOPA/LEVODOPA CR 50 MG/200 MG TABLET PO SCH (20:08)
[2018-07-19 20:21] VITALS: BP 131/70
[2018-07-20] MEDS ORDERED: SODIUM CHLORIDE 0.9%, 500ML IVBOLUS ONE (00:30)
[2018-07-20 01:14] VITALS: BP 141/71
[2018-07-20] MEDS: CEFAZOLIN PMX 1GM/50ML 50 ML IVPB SCH ×2 (01:48→10:46)
[2018-07-20] MEDS: HEPARIN 5,000 UNITS/ML, 1ML SQ SCH ×4 (04:30→19:59)
[2018-07-20] MEDS: LEVOTHYROXINE 100 MCG TABLET PO SCH (05:08)
[2018-07-20 05:52] LABS: MEAN CORPUSCULAR HEMOGLOBIN 29.7 pg (27.0-34.8); MEAN CORPUSCULAR HGB CONC 32.3 g/dL (32.4-35.8); MEAN CORPUSCULAR VOLUME 92.1 fL (80-100); RED CELL DISTRIBUTION WIDTH 15.3 % (9.6-15.2)
[2018-07-20 06:39] LABS: BASOPHILS # (AUTO) 0.01 x10^3/uL (0-0.1); BASOPHILS % (AUTO) 0 % (0-1); EOSINOPHILS # (AUTO) 0.01 x10^3/uL (0-0.4); EOSINOPHILS % (AUTO) 0 % (1-7); LYMPHOCYTES # (AUTO) 0.58 x10^3/uL (1-3.4); LYMPHOCYTES % (AUTO) 7 % (22-44); MD SCAN; MEAN PLATELET VOLUME 9.9 fL (7.4-10.4); MONOCYTES # (AUTO) 0.65 x10^3/uL (0.2-0.8); MONOCYTES % (AUTO) 8 % (2-9); NEUTROPHILS # (AUTO) 7.06 x10^3/uL (1.8-6.8); NEUTROPHILS % (AUTO) 85 % (42-75); PLATELET COUNT 78 x10^3/uL (130-400)
[2018-07-20 06:39] LABS: ANION GAP 9 mmol/L (5-15); CALCIUM 7.5 mg/dL (8.5-10.1); CHLORIDE 113 mmol/L (98-107); CREATININE 0.89 mg/dL (0.55-1.02)
[2018-07-20 07:36] VITALS: BP 138/58
[2018-07-20] MEDS: CARBIDOPA/LEVODOPA CR 25 MG/100 MG TABLET PO SCH ×3 (07:37→15:18)
[2018-07-20] MEDS: CARBIDOPA/LEVODOPA 25 MG/100 MG TABLET PO SCH ×7 (07:37→19:30)
[2018-07-20] MEDS: CHOLECALCIFEROL 1,000 UNIT TABLET PO SCH ×2 (07:37→20:00)
[2018-07-20] MEDS: CARVEDILOL 3.125 MG TABLET PO SCH ×2 (07:38→20:00)
[2018-07-20] MEDS: POLYETHYLENE GLYCOL 17 GM PACKET PO SCH (07:38)
[2018-07-20] MEDS: DILTIAZEM 30 MG TABLET PO SCH (07:38)
[2018-07-20] MEDS: SODIUM CHLORIDE 0.9% 1,000 ML IV SCH (09:26)
[2018-07-20] MEDS: CEFTRIAXONE PMX 1GM/50ML 50 ML IV SCH (10:05)
[2018-07-20] MEDS ORDERED: CEFAZOLIN PMX 1GM/50ML 50 ML ONE (10:14)
[2018-07-20 12:18] VITALS: BP 106/49
[2018-07-20] MEDS ORDERED: VANCOMYCIN PER PHARMACY MC PRN (18:00)
[2018-07-20 18:01] LABS: MEAN CORPUSCULAR HEMOGLOBIN 30.8 pg (27.0-34.8); MEAN CORPUSCULAR HGB CONC 33.5 g/dL (32.4-35.8); MEAN CORPUSCULAR VOLUME 91.9 fL (80-100); MEAN PLATELET VOLUME 11.5 fL (7.4-10.4); PLATELET COUNT 84 x10^3/uL (130-400); RED BLOOD COUNT 2.52 x10^6/uL (3.82-5.3); RED CELL DISTRIBUTION WIDTH 15.6 % (9.6-15.2)
[2018-07-20 18:05] LABS: BASOPHILS % (AUTO) 0 % (0-1); EOSINOPHILS # (AUTO) 0.01 x10^3/uL (0-0.4); EOSINOPHILS % (AUTO) 0 % (1-7); LYMPHOCYTES # (AUTO) 0.44 x10^3/uL (1-3.4); LYMPHOCYTES % (AUTO) 5 % (22-44); MD SCAN; MONOCYTES # (AUTO) 0.79 x10^3/uL (0.2-0.8); MONOCYTES % (AUTO) 9 % (2-9); NEUTROPHILS # (AUTO) 7.23 x10^3/uL (1.8-6.8); NEUTROPHILS % (AUTO) 85 % (42-75)
[2018-07-20] MEDS: PIPERACILLIN/TAZO/PMX 3.375GM 50 ML IV SCH (18:14)
[2018-07-20 19:08] VITALS: BP 94/51
[2018-07-20] MEDS: CARBIDOPA/LEVODOPA CR 50 MG/200 MG TABLET PO SCH (19:30)
[2018-07-20] MEDS: MIRTAZAPINE 15 MG TABLET PO SCH (20:00)
[2018-07-20] MEDS ORDERED: PHARMACOKINETIC MONITORING MC PRN (20:00)
[2018-07-20] MEDS: MEMANTINE 5MG TABLET PO SCH (20:00)
[2018-07-20] MEDS ORDERED: VANCOMYCIN PMX 1GM/200ML 200 ML IVPB ONE (20:00)
[2018-07-20 21:27] LABS: HIT RESULT NEGATIVE (NEGATIVE)
[2018-07-21] VITALS (9 sets, daily range): BP systolic 95–132; BP diastolic 44–64
[2018-07-21] MEDS: PIPERACILLIN/TAZO/PMX 3.375GM 50 ML IV SCH ×3 (02:10→21:52)
[2018-07-21] MEDS: HEPARIN 5,000 UNITS/ML, 1ML SQ SCH ×2 (04:30→11:59)
[2018-07-21] MEDS: LEVOTHYROXINE 100 MCG TABLET PO SCH (06:00)
[2018-07-21 06:12] LABS: ANION GAP 9 mmol/L (5-15); CALCIUM 7.6 mg/dL (8.5-10.1); CHLORIDE 115 mmol/L (98-107); CREATININE 0.86 mg/dL (0.55-1.02)
[2018-07-21 07:09] LABS: MEAN CORPUSCULAR HEMOGLOBIN 30.5 pg (27.0-34.8); MEAN CORPUSCULAR HGB CONC 33.4 g/dL (32.4-35.8); MEAN CORPUSCULAR VOLUME 91.4 fL (80-100); RED CELL DISTRIBUTION WIDTH 15.6 % (9.6-15.2)
[2018-07-21 07:29] LABS: MEAN PLATELET VOLUME 11.3 fL (7.4-10.4); PLATELET COUNT 85 x10^3/uL (130-400)
[2018-07-21] MEDS: CARBIDOPA/LEVODOPA CR 25 MG/100 MG TABLET PO SCH ×3 (07:30→15:30)
[2018-07-21] MEDS: CARBIDOPA/LEVODOPA 25 MG/100 MG TABLET PO SCH ×7 (07:30→19:30)
[2018-07-21 07:37] LABS: BASOPHILS % (AUTO) 0 % (0-1); EOSINOPHILS # (AUTO) 0.04 x10^3/uL (0-0.4); EOSINOPHILS % (AUTO) 0 % (1-7); LYMPHOCYTES # (AUTO) 0.42 x10^3/uL (1-3.4); LYMPHOCYTES % (AUTO) 4 % (22-44); MD SCAN; MONOCYTES # (AUTO) 0.62 x10^3/uL (0.2-0.8); MONOCYTES % (AUTO) 6 % (2-9); NEUTROPHILS # (AUTO) 9.51 x10^3/uL (1.8-6.8); NEUTROPHILS % (AUTO) 90 % (42-75)
[2018-07-21] MEDS: POLYETHYLENE GLYCOL 17 GM PACKET PO SCH (09:00)
[2018-07-21] MEDS: CHOLECALCIFEROL 1,000 UNIT TABLET PO SCH ×2 (09:00→21:00)
[2018-07-21] MEDS: CARVEDILOL 3.125 MG TABLET PO SCH ×2 (09:00→21:00)
[2018-07-21] MEDS: DILTIAZEM 30 MG TABLET PO SCH (09:00)
[2018-07-21] MEDS: CEFTRIAXONE PMX 1GM/50ML 50 ML IV SCH (09:44)
[2018-07-21] MEDS ORDERED: FUROSEMIDE 20 MG/2 ML IV ONE (12:30)
[2018-07-21 15:35] LABS: HIT RESULT NEGATIVE (NEGATIVE)
[2018-07-21 17:31] LABS: ANION GAP 10 mmol/L (5-15); CALCIUM 7.6 mg/dL (8.5-10.1); CHLORIDE 114 mmol/L (98-107); CREATININE 0.76 mg/dL (0.55-1.02)
[2018-07-21] MEDS: CARBIDOPA/LEVODOPA CR 50 MG/200 MG TABLET PO SCH (19:30)
[2018-07-21] MEDS ORDERED: VANCOMYCIN PMX 1GM/200ML 200 ML IVPB SCH (20:00)
[2018-07-21] MEDS: MEMANTINE 5MG TABLET PO SCH (21:00)
[2018-07-21] MEDS: MIRTAZAPINE 15 MG TABLET PO SCH (21:00)
[2018-07-22] VITALS (9 sets, daily range): BP systolic 102–149; BP diastolic 58–76
[2018-07-22] MEDS: LEVOTHYROXINE 100 MCG TABLET PO SCH (05:28)
[2018-07-22] MEDS: PIPERACILLIN/TAZO/PMX 3.375GM 50 ML IV SCH ×3 (05:34→20:38)
[2018-07-22] MEDS: CARBIDOPA/LEVODOPA CR 25 MG/100 MG TABLET PO SCH ×2 (07:30→11:42)
[2018-07-22] MEDS: CARBIDOPA/LEVODOPA 25 MG/100 MG TABLET PO SCH ×4 (07:30→13:30)
[2018-07-22] MEDS ORDERED: SODIUM CHLORIDE 0.45% 1,000 ML IV SCH (08:30)
[2018-07-22] MEDS: DILTIAZEM 30 MG TABLET PO SCH (09:00)
[2018-07-22] MEDS ORDERED: KETOROLAC 30 MG/1 ML IV PRN (09:00)
[2018-07-22] MEDS: CHOLECALCIFEROL 1,000 UNIT TABLET PO SCH (09:00)
[2018-07-22] MEDS ORDERED: KETOROLAC 30 MG/1 ML IVPush PRN (09:00)
[2018-07-22] MEDS: CARVEDILOL 3.125 MG TABLET PO SCH (09:00)
[2018-07-22] MEDS: POLYETHYLENE GLYCOL 17 GM PACKET PO SCH (09:00)
[2018-07-22 09:20] LABS: ALBUMIN 2.5 g/dL (3.4-5.0); ANION GAP 11 mmol/L (5-15); CALCIUM 7.8 mg/dL (8.5-10.1); CHLORIDE 114 mmol/L (98-107)
[2018-07-22 09:40] LABS: BASOPHILS # (AUTO) 0.02 x10^3/uL (0-0.1); BASOPHILS % (AUTO) 0 % (0-1); EOSINOPHILS # (AUTO) 0.04 x10^3/uL (0-0.4); EOSINOPHILS % (AUTO) 0 % (1-7); LYMPHOCYTES # (AUTO) 0.45 x10^3/uL (1-3.4); LYMPHOCYTES % (AUTO) 4 % (22-44); MD SCAN; MEAN CORPUSCULAR HGB CONC 33.5 g/dL (32.4-35.8); MEAN CORPUSCULAR VOLUME 89.6 fL (80-100); MEAN PLATELET VOLUME 11.3 fL (7.4-10.4); MONOCYTES # (AUTO) 0.83 x10^3/uL (0.2-0.8); MONOCYTES % (AUTO) 8 % (2-9); NEUTROPHILS # (AUTO) 9.44 x10^3/uL (1.8-6.8); NEUTROPHILS % (AUTO) 88 % (42-75); PLATELET COUNT 84 x10^3/uL (130-400); RED BLOOD COUNT 2.79 x10^6/uL (3.82-5.3); RED CELL DISTRIBUTION WIDTH 16.2 % (9.6-15.2)
[2018-07-22 10:20] LABS: ALANINE AMINOTRANSFERASE 8 U/L (12-78); ALKALINE PHOSPHATASE 97 U/L (45-117); BILIRUBIN,TOTAL 1.5 mg/dL (0.2-1.0); CREATININE 0.71 mg/dL (0.55-1.02); TOTAL PROTEIN 6.2 g/dL (6.4-8.2)
[2018-07-22] MEDS: SODIUM CHLORIDE 0.45% 1,000 ML IV SCH ×2 (10:24→17:42)
[2018-07-22] MEDS ORDERED: METOPROLOL 1 MG/ML, 5ML IVPush ONE ×2 (12:30→17:30)
[2018-07-22] MEDS ORDERED: DILTIAZEM 5 MG/ML, 5ML IVPush ONE ×2 (20:30→22:30)
[2018-07-23 00:54] VITALS: BP 144/97
[2018-07-23] MEDS ORDERED: DILTIAZEM 125 MG in SODIUM CHLORIDE 0.9% 100 ML IV SCH (01:30)
[2018-07-23] MEDS: SODIUM CHLORIDE 0.45% 1,000 ML IV SCH (02:06)
[2018-07-23] MEDS: PIPERACILLIN/TAZO/PMX 3.375GM 50 ML IV SCH ×3 (05:12→20:15)
[2018-07-23 06:06] LABS: ANION GAP 14 mmol/L (5-15); CALCIUM 8.1 mg/dL (8.5-10.1); CHLORIDE 114 mmol/L (98-107)
[2018-07-23 06:08] LABS: CREATININE 0.79 mg/dL (0.55-1.02)
[2018-07-23 06:28] LABS: MEAN CORPUSCULAR HEMOGLOBIN 29.5 pg (27.0-34.8); MEAN CORPUSCULAR HGB CONC 32.9 g/dL (32.4-35.8); MEAN CORPUSCULAR VOLUME 89.5 fL (80-100); MEAN PLATELET VOLUME 10.9 fL (7.4-10.4); PLATELET COUNT 105 x10^3/uL (130-400); RED BLOOD COUNT 2.99 x10^6/uL (3.82-5.3); RED CELL DISTRIBUTION WIDTH 15.9 % (9.6-15.2)
[2018-07-23 06:50] LABS: BASOPHILS % (AUTO) 0 % (0-1); EOSINOPHILS # (AUTO) 0.03 x10^3/uL (0-0.4); EOSINOPHILS % (AUTO) 0 % (1-7); LYMPHOCYTES # (AUTO) 0.46 x10^3/uL (1-3.4); LYMPHOCYTES % (AUTO) 4 % (22-44); MD SCAN; MONOCYTES # (AUTO) 0.97 x10^3/uL (0.2-0.8); MONOCYTES % (AUTO) 8 % (2-9); NEUTROPHILS # (AUTO) 11.33 x10^3/uL (1.8-6.8); NEUTROPHILS % (AUTO) 89 % (42-75)
[2018-07-23 07:14] VITALS: BP 134/83
[2018-07-23 07:37] VITALS: BP 132/85
[2018-07-23] MEDS ORDERED: METOPROLOL 1 MG/ML, 5ML IVPush SCH (09:00)
[2018-07-23] MEDS ORDERED: ENOXAPARIN 60 MG/0.6 ML SQ SCH (09:30)
[2018-07-23] MEDS ORDERED: LIDOCAINE-MPF 1%, 5ML ONE ×2 (10:08→10:09)
[2018-07-23] MEDS: morphine SULFATE 10 MG/ML, 1ML IVPush PRN (10:10)
[2018-07-23] MEDS ORDERED: MAGNESIUM CITRATE 300ML ORAL SOL PO PRN (11:00)
[2018-07-23 11:01] LABS: ALBUMIN 2.6 g/dL (3.4-5.0)
[2018-07-23 11:02] LABS: TOTAL PROTEIN 6.5 g/dL (6.4-8.2)
[2018-07-23] MEDS ORDERED: OMNIPAQUE 350 MG/ML, 100ML BOTTLE ONE (11:07)
[2018-07-23] MEDS ORDERED: OMNIPAQUE 300 MG/ML, 10ML VIAL ONE (11:57)
[2018-07-23] MEDS ORDERED: CARBIDOPA/LEVODOPA 25 MG/100 MG TABLET ONE (13:06)
[2018-07-23] MEDS ORDERED: METOPROLOL 1 MG/ML, 5ML IVPush ONE (13:30)
[2018-07-23] MEDS: CARBIDOPA/LEVODOPA 25 MG/100 MG TABLET PO SCH ×4 (13:34→20:15)
[2018-07-23 14:00] VITALS: BP 130/69
[2018-07-23] MEDS: POLYETHYLENE GLYCOL 17 GM PACKET PO SCH (14:30)
[2018-07-23] MEDS ORDERED: CHOLECALCIFEROL 1,000 UNIT TABLET PO SCH (14:30)
[2018-07-23] MEDS ORDERED: ACETAMINOPHEN 325 MG TABLET PO PRN (14:30)
[2018-07-23] MEDS ORDERED: MEMANTINE 5MG TABLET PO SCH (14:30)
[2018-07-23] MEDS ORDERED: CARVEDILOL 3.125 MG TABLET PO SCH (14:30)
[2018-07-23] MEDS ORDERED: MIRTAZAPINE 15 MG TABLET PO SCH (14:30)
[2018-07-23] MEDS ORDERED: LEVOTHYROXINE 100 MCG TABLET PO SCH (14:30)
[2018-07-23] MEDS: CARVEDILOL 3.125 MG TABLET PO SCH ×2 (15:00→17:35)
[2018-07-23] MEDS: CHOLECALCIFEROL 1,000 UNIT TABLET PO SCH ×2 (15:00→17:36)
[2018-07-23] MEDS: DILTIAZEM 125 MG in SODIUM CHLORIDE 0.9% 100 ML IV SCH (18:51)
[2018-07-23 20:00] VITALS: BP 100/62
[2018-07-23] MEDS: MEMANTINE 5MG TABLET PO SCH (20:15)
[2018-07-23] MEDS: MIRTAZAPINE 15 MG TABLET PO SCH (20:16)
[2018-07-24 02:00] VITALS: BP 112/67
[2018-07-24 04:31] VITALS: BP 112/67
[2018-07-24] MEDS: LEVOTHYROXINE 100 MCG TABLET PO SCH (05:37)
[2018-07-24] MEDS: CARBIDOPA/LEVODOPA 25 MG/100 MG TABLET PO SCH ×7 (05:37→22:08)
[2018-07-24] MEDS: PIPERACILLIN/TAZO/PMX 3.375GM 50 ML IV SCH ×3 (05:37→22:08)
[2018-07-24] MEDS: METOPROLOL TARTRATE 25 MG TABLET PO SCH ×2 (05:37→17:43)
[2018-07-24 05:39] LABS: BASOPHILS # (AUTO) 0.01 x10^3/uL (0-0.1); BASOPHILS % (AUTO) 0 % (0-1); EOSINOPHILS # (AUTO) 0.15 x10^3/uL (0-0.4); EOSINOPHILS % (AUTO) 1 % (1-7); LYMPHOCYTES # (AUTO) 0.62 x10^3/uL (1-3.4); LYMPHOCYTES % (AUTO) 5 % (22-44); MD NO; MEAN CORPUSCULAR HEMOGLOBIN 30.4 pg (27.0-34.8); MEAN CORPUSCULAR HGB CONC 33.4 g/dL (32.4-35.8); MEAN CORPUSCULAR VOLUME 91.1 fL (80-100); MEAN PLATELET VOLUME 10.6 fL (7.4-10.4); MONOCYTES # (AUTO) 0.93 x10^3/uL (0.2-0.8); MONOCYTES % (AUTO) 8 % (2-9); NEUTROPHILS # (AUTO) 9.94 x10^3/uL (1.8-6.8); NEUTROPHILS % (AUTO) 85 % (42-75); PLATELET COUNT 119 x10^3/uL (130-400)
[2018-07-24 05:53] LABS: ANION GAP 11 mmol/L (5-15); CALCIUM 8.2 mg/dL (8.5-10.1); CHLORIDE 112 mmol/L (98-107)
[2018-07-24 05:54] LABS: CREATININE 0.74 mg/dL (0.55-1.02)
[2018-07-24] MEDS: DILTIAZEM 125 MG in SODIUM CHLORIDE 0.9% 100 ML IV SCH ×2 (06:32→22:17)
[2018-07-24 07:11] VITALS: BP 103/65
[2018-07-24] MEDS ORDERED: DILTIAZEM 30 MG TABLET PO SCH (09:00)
[2018-07-24] MEDS: CHOLECALCIFEROL 1,000 UNIT TABLET PO SCH ×2 (10:37→22:09)
[2018-07-24] MEDS: POLYETHYLENE GLYCOL 17 GM PACKET PO SCH (10:38)
[2018-07-24 12:04] VITALS: BP 104/67
[2018-07-24 20:39] VITALS: BP 119/75
[2018-07-24] MEDS: MIRTAZAPINE 15 MG TABLET PO SCH (22:09)
[2018-07-24] MEDS: MEMANTINE 5MG TABLET PO SCH (22:09)
[2018-07-25 01:06] VITALS: BP 117/70
[2018-07-25] MEDS: PIPERACILLIN/TAZO/PMX 3.375GM 50 ML IV SCH ×3 (05:11→23:48)
[2018-07-25] MEDS: CARBIDOPA/LEVODOPA 25 MG/100 MG TABLET PO SCH ×7 (05:12→22:39)
[2018-07-25] MEDS: METOPROLOL TARTRATE 25 MG TABLET PO SCH ×2 (05:12→17:11)
[2018-07-25] MEDS: LEVOTHYROXINE 100 MCG TABLET PO SCH (05:12)
[2018-07-25 07:27] VITALS: BP 121/85
[2018-07-25] MEDS: POLYETHYLENE GLYCOL 17 GM PACKET PO SCH (07:32)
[2018-07-25] MEDS: CHOLECALCIFEROL 1,000 UNIT TABLET PO SCH ×2 (08:55→22:39)
[2018-07-25 09:05] LABS: BASOPHILS # (AUTO) 0.01 x10^3/uL (0-0.1); BASOPHILS % (AUTO) 0 % (0-1); EOSINOPHILS # (AUTO) 0.21 x10^3/uL (0-0.4); EOSINOPHILS % (AUTO) 2 % (1-7); LYMPHOCYTES % (AUTO) 6 % (22-44); MD NO; MEAN CORPUSCULAR HEMOGLOBIN 28.8 pg (27.0-34.8); MEAN CORPUSCULAR HGB CONC 31.9 g/dL (32.4-35.8); MEAN CORPUSCULAR VOLUME 90.2 fL (80-100); MEAN PLATELET VOLUME 9.9 fL (7.4-10.4); MONOCYTES # (AUTO) 0.95 x10^3/uL (0.2-0.8); MONOCYTES % (AUTO) 8 % (2-9); NEUTROPHILS # (AUTO) 9.61 x10^3/uL (1.8-6.8); NEUTROPHILS % (AUTO) 84 % (42-75); PLATELET COUNT 121 x10^3/uL (130-400); RED BLOOD COUNT 2.75 x10^6/uL (3.82-5.3); RED CELL DISTRIBUTION WIDTH 15.6 % (9.6-15.2)
[2018-07-25 09:16] LABS: ALBUMIN 2.3 g/dL (3.4-5.0); ANION GAP 7 mmol/L (5-15); CALCIUM 7.9 mg/dL (8.5-10.1); CHLORIDE 113 mmol/L (98-107); CREATININE 0.57 mg/dL (0.55-1.02)
[2018-07-25] MEDS ORDERED: DILTIAZEM 5 MG/ML, 5ML ONE (12:21)
[2018-07-25] MEDS ORDERED: DILTIAZEM 5 MG/ML, 5ML IVPush ONE (12:30)
[2018-07-25 13:07] VITALS: BP 130/77
[2018-07-25] MEDS ORDERED: POTASSIUM PHOSPHATE 44 MEQ in SODIUM CHLORIDE 0.9% 500 ML IV ONE (13:30)
[2018-07-25 19:33] VITALS: BP 117/74
[2018-07-25] MEDS: MEMANTINE 5MG TABLET PO SCH (22:39)
[2018-07-25] MEDS: DILTIAZEM 125 MG in SODIUM CHLORIDE 0.9% 100 ML IV SCH (23:30)
[2018-07-26] MEDS ORDERED: DILTIAZEM 125 MG in SODIUM CHLORIDE 0.9% 100 ML IV SCH (01:30)
[2018-07-26 02:59] VITALS: BP 144/87
[2018-07-26] MEDS: CARBIDOPA/LEVODOPA 25 MG/100 MG TABLET PO SCH ×7 (06:25→20:00)
[2018-07-26] MEDS: LEVOTHYROXINE 100 MCG TABLET PO SCH (06:26)
[2018-07-26] MEDS: METOPROLOL TARTRATE 25 MG TABLET PO SCH ×5 (06:26→23:31)
[2018-07-26 07:41] VITALS: BP 100/63
[2018-07-26] MEDS: PIPERACILLIN/TAZO/PMX 3.375GM 50 ML IV SCH ×3 (08:08→23:28)
[2018-07-26 08:40] LABS: MEAN CORPUSCULAR HEMOGLOBIN 29.2 pg (27.0-34.8); MEAN CORPUSCULAR HGB CONC 32.3 g/dL (32.4-35.8); MEAN CORPUSCULAR VOLUME 90.4 fL (80-100); RED BLOOD COUNT 2.66 x10^6/uL (3.82-5.3)
[2018-07-26 08:44] LABS: ALBUMIN 2.5 g/dL (3.4-5.0); ANION GAP 7 mmol/L (5-15); CALCIUM 8.4 mg/dL (8.5-10.1); CHLORIDE 113 mmol/L (98-107); CREATININE 0.62 mg/dL (0.55-1.02)
[2018-07-26 09:08] LABS: BASOPHILS # (AUTO) 0.03 x10^3/uL (0-0.1); BASOPHILS % (AUTO) 0 % (0-1); EOSINOPHILS # (AUTO) 0.19 x10^3/uL (0-0.4); EOSINOPHILS % (AUTO) 1 % (1-7); LYMPHOCYTES # (AUTO) 1.07 x10^3/uL (1-3.4); LYMPHOCYTES % (AUTO) 8 % (22-44); MD SCAN; MEAN PLATELET VOLUME 10.6 fL (7.4-10.4); MONOCYTES % (AUTO) 8 % (2-9); NEUTROPHILS # (AUTO) 10.96 x10^3/uL (1.8-6.8); NEUTROPHILS % (AUTO) 83 % (42-75); PLATELET COUNT 143 x10^3/uL (130-400)
[2018-07-26] MEDS: DILTIAZEM 125 MG in SODIUM CHLORIDE 0.9% 100 ML IV SCH ×2 (09:17→18:01)
[2018-07-26] MEDS: CHOLECALCIFEROL 1,000 UNIT TABLET PO SCH ×2 (10:16→21:00)
[2018-07-26 13:11] VITALS: BP 145/72
[2018-07-26] MEDS ORDERED: CARBIDOPA/LEVODOPA 25 MG/100 MG TABLET PO PRN ×2 (16:30→17:10)
[2018-07-26] MEDS ORDERED: CARBIDOPA/LEVODOPA 25 MG/100 MG TABLET PO SCH ×3 (16:30→17:11)
[2018-07-26 20:09] VITALS: BP 135/87
[2018-07-26] MEDS: MEMANTINE 5MG TABLET PO SCH (21:00)
[2018-07-26] MEDS: SODIUM CHLORIDE 0.9% 1,000 ML IV SCH (21:08)
[2018-07-27 01:42] VITALS: BP 104/69
[2018-07-27] MEDS: CARBIDOPA/LEVODOPA 25 MG/100 MG TABLET PO SCH ×8 (05:28→20:53)
[2018-07-27] MEDS ORDERED: BENZOCAINE 20% SPRAY 0.5ML ONE (07:23)
[2018-07-27] MEDS ORDERED: LIDOCAINE GEL 2%, 5ML TP ONE (07:30)
[2018-07-27 08:52] VITALS: BP 115/71
[2018-07-27] MEDS: PIPERACILLIN/TAZO/PMX 3.375GM 50 ML IV SCH ×3 (08:55→23:49)
[2018-07-27] MEDS: METOPROLOL TARTRATE 25 MG TABLET PO SCH ×3 (09:03→20:51)
[2018-07-27] MEDS: CHOLECALCIFEROL 1,000 UNIT TABLET PO SCH ×2 (09:03→20:50)
[2018-07-27] MEDS: LEVOTHYROXINE 100 MCG TABLET PO SCH (09:04)
[2018-07-27] MEDS: SODIUM CHLORIDE 0.9% 1,000 ML IV SCH (13:08)
[2018-07-27 15:40] VITALS: BP 121/77
[2018-07-27] MEDS: DILTIAZEM 125 MG in SODIUM CHLORIDE 0.9% 100 ML IV SCH (18:08)
[2018-07-27 20:21] VITALS: BP 128/70
[2018-07-27] MEDS: MEMANTINE 5MG TABLET PO SCH (20:50)
[2018-07-27 22:26] VITALS: BP 105/68
[2018-07-28 01:02] VITALS: BP 106/76
[2018-07-28] MEDS ORDERED: ALBUTEROL/IPRATROPIUM 2.5MG/0.5MG, 3 ML ONE (01:20)
[2018-07-28] MEDS ORDERED: FUROSEMIDE 20 MG/2 ML IV STA (01:59)
[2018-07-28] MEDS: CARBIDOPA/LEVODOPA 25 MG/100 MG TABLET PO SCH ×8 (02:12→20:30)
[2018-07-28 02:36] VITALS: BP 110/63
[2018-07-28] MEDS: SODIUM CHLORIDE 0.9% 1,000 ML IV SCH (02:39)
[2018-07-28] MEDS: DILTIAZEM 125 MG in SODIUM CHLORIDE 0.9% 100 ML IV SCH (02:39)
[2018-07-28] MEDS: METOPROLOL TARTRATE 25 MG TABLET PO SCH ×3 (04:29→18:24)
[2018-07-28] MEDS: LEVOTHYROXINE 100 MCG TABLET PO SCH (06:00)
[2018-07-28 07:45] VITALS: BP 128/47
[2018-07-28] MEDS: PIPERACILLIN/TAZO/PMX 3.375GM 50 ML IV SCH ×2 (08:13→15:58)
[2018-07-28] MEDS: CHOLECALCIFEROL 1,000 UNIT TABLET PO SCH ×2 (08:13→20:30)
[2018-07-28 08:35] LABS: ANION GAP 14 mmol/L (5-15); CALCIUM 7.7 mg/dL (8.5-10.1); CHLORIDE 111 mmol/L (98-107); CREATININE 1.28 mg/dL (0.55-1.02)
[2018-07-28 11:16] LABS: ALBUMIN 2.5 g/dL (3.4-5.0); ANION GAP 10 mmol/L (5-15); CALCIUM 7.6 mg/dL (8.5-10.1); CHLORIDE 110 mmol/L (98-107)
[2018-07-28 11:29] LABS: MEAN CORPUSCULAR HEMOGLOBIN 29.4 pg (27.0-34.8); MEAN CORPUSCULAR HGB CONC 31.7 g/dL (32.4-35.8); MEAN CORPUSCULAR VOLUME 92.6 fL (80-100); MEAN PLATELET VOLUME 10.8 fL (7.4-10.4); PLATELET COUNT 149 x10^3/uL (130-400); RED BLOOD COUNT 2.69 x10^6/uL (3.82-5.3); RED CELL DISTRIBUTION WIDTH 16.3 % (9.6-15.2)
[2018-07-28 11:30] LABS: MD YES
[2018-07-28 11:32] LABS: BAND#(MANUAL) 0.94 x10^3/uL; BANDS%(MANUAL) 5 % (0-7); EOS#(MANUAL) 0.19 x10^3/uL (0.0-0.4); EOS% (MANUAL) 1 % (1-7); LYMPH#(MANUAL) 0.75 x10^3/uL (1-3.4); LYMPHS% (MANUAL) 4 % (22-44); METAMYELOCYTES# (MANUAL) 0.37 x10^3/uL (0-0); METAMYELOCYTES% (MANUAL) 2 % (0-1); MONOS% (MANUAL) 8 % (2-9); MYELOCYTES# (MANUAL) 0.19 x10^3/uL (0-0); MYELOCYTES% (MANUAL) 1 % (0-0); NRBC % (MANUAL) 8 % (0-1); SEG#(MANUAL) 14.77 x10^3/uL (1.8-6.8); SEGS% (MANUAL) 79 % (42-75)
[2018-07-28 11:33] LABS: ANISOCYTOSIS 1+; OVALOCYTES 1+; POLYCHROMASIA 1+
[2018-07-28 11:34] LABS: <PLATELET ESTIMATE> ADEQUATE; LARGE PLATELETS 1+
[2018-07-28 13:01] VITALS: BP 104/50
[2018-07-28] MEDS ORDERED: DIGOXIN 0.25 MG/ML, 2ML IVPush ONE (16:00)
[2018-07-28] MEDS ORDERED: FUROSEMIDE 20 MG/2 ML IV ONE (16:00)
[2018-07-28] MEDS ORDERED: ALBUMIN HUMAN 25% 50 ML IV PRN (16:00)
[2018-07-28] MEDS ORDERED: ALBUTEROL SULFATE 2.5 MG/3 ML ONE (16:03)
[2018-07-28] MEDS ORDERED: ALBUTEROL SULFATE 2.5 MG/3 ML NPPB ONE (16:30)
[2018-07-28] MEDS: morphine SULFATE 10 MG/ML, 1ML IVPush PRN ×2 (17:35→22:43)
[2018-07-28 19:45] VITALS: BP 104/52
[2018-07-28] MEDS: MEMANTINE 5MG TABLET PO SCH (20:30)
[2018-07-29] MEDS: PIPERACILLIN/TAZO/PMX 3.375GM 50 ML IV SCH ×3 (00:38→18:13)
[2018-07-29] MEDS: METOPROLOL TARTRATE 25 MG TABLET PO SCH ×4 (00:41→18:18)
[2018-07-29 01:57] VITALS: BP 124/76
[2018-07-29] MEDS: LEVOTHYROXINE 100 MCG TABLET PO SCH (06:00)
[2018-07-29] MEDS: CARBIDOPA/LEVODOPA 25 MG/100 MG TABLET PO SCH ×8 (06:50→21:04)
[2018-07-29 07:25] VITALS: BP 122/79
[2018-07-29] MEDS: CHOLECALCIFEROL 1,000 UNIT TABLET PO SCH ×2 (09:53→21:04)
[2018-07-29] MEDS: morphine SULFATE 10 MG/ML, 1ML IVPush PRN ×4 (12:25→21:07)
[2018-07-29 14:00] VITALS: BP 126/81
[2018-07-29] MEDS ORDERED: METOPROLOL TARTRATE 25 MG TABLET PO SCH (18:00)
[2018-07-29 19:40] VITALS: BP 122/79
[2018-07-29] MEDS: MEMANTINE 5MG TABLET PO SCH (21:04)
[2018-07-30] MEDS: PIPERACILLIN/TAZO/PMX 3.375GM 50 ML IV SCH ×2 (02:13→10:43)
[2018-07-30 02:30] VITALS: BP 117/75
[2018-07-30 05:29] LABS: CALCIUM 7.8 mg/dL (8.5-10.1); CHLORIDE 108 mmol/L (98-107)
[2018-07-30 05:35] LABS: ALANINE AMINOTRANSFERASE 51 U/L (12-78); ALBUMIN 2.2 g/dL (3.4-5.0); ALKALINE PHOSPHATASE 171 U/L (45-117); ANION GAP 5 mmol/L (5-15); BILIRUBIN,TOTAL 1.2 mg/dL (0.2-1.0); CREATININE 0.63 mg/dL (0.55-1.02); TOTAL PROTEIN 5.5 g/dL (6.4-8.2)
[2018-07-30] MEDS: CARBIDOPA/LEVODOPA 25 MG/100 MG TABLET PO SCH ×5 (05:41→14:12)
[2018-07-30] MEDS: METOPROLOL TARTRATE 25 MG TABLET PO SCH (05:41)
[2018-07-30] MEDS: LEVOTHYROXINE 100 MCG TABLET PO SCH (05:42)
[2018-07-30 05:43] LABS: MEAN CORPUSCULAR HGB CONC 32.3 g/dL (32.4-35.8); RED BLOOD COUNT 2.83 x10^6/uL (3.82-5.3); RED CELL DISTRIBUTION WIDTH 16.7 % (9.6-15.2)
[2018-07-30] MEDS: morphine SULFATE 10 MG/ML, 1ML IVPush PRN ×3 (05:43→12:16)
[2018-07-30 06:10] LABS: BASOPHILS # (AUTO) 0.04 x10^3/uL (0-0.1); BASOPHILS % (AUTO) 0 % (0-1); EOSINOPHILS # (AUTO) 0.21 x10^3/uL (0-0.4); EOSINOPHILS % (AUTO) 1 % (1-7); LYMPHOCYTES # (AUTO) 1.06 x10^3/uL (1-3.4); LYMPHOCYTES % (AUTO) 5 % (22-44); MD SCAN; MONOCYTES # (AUTO) 0.98 x10^3/uL (0.2-0.8); MONOCYTES % (AUTO) 5 % (2-9); NEUTROPHILS # (AUTO) 19.51 x10^3/uL (1.8-6.8); NEUTROPHILS % (AUTO) 90 % (42-75); PLATELET COUNT 126 x10^3/uL (130-400)
[2018-07-30 06:48] VITALS: BP 98/63
[2018-07-30] MEDS: CHOLECALCIFEROL 1,000 UNIT TABLET PO SCH (08:55)
[2018-07-30 12:39] VITALS: BP 91/61
[2018-07-30] MEDS ORDERED: LIDOCAINE-MPF 1%, 5ML ONE (15:14)
[2018-07-30] MEDS ORDERED: LORazepam 2 MG/ML, 1ML IVPush PRN (15:30)
[2018-07-30] MEDS ORDERED: SCOPOLAMINE PATCH, 1.5MG PATCH.TD72 TD SCH (16:00)
[2018-07-30] MEDS: MORPHINE SULFATE 4 MG/ML, 1ML IVPush PRN (16:05)
[2018-07-30] MEDS: ATROPINE OPHTH SOLN 1%, 2ML BC PRN ×2 (20:04→21:32)
[2018-07-31] MEDS: ATROPINE OPHTH SOLN 1%, 2ML BC PRN ×8 (00:34→14:23)
[2018-07-31] MEDS: MORPHINE SULFATE 4 MG/ML, 1ML IVPush PRN (12:25)
== END 2018-07-31 18:00 | disposition expired | DRG 480 ==
LOC: ED 03:52 → EDIP 04:11 → SUATTDRO 04:23 → 4NOR 05:30 → 4EST 07-22 08:23 → 4NOR 07-22 08:25 → 4EST 07-22 09:33 → 3NW 07-30 16:59
PROVIDERS: ADMIT Hospitalist; ATTEND Hospitalist
PROC: 0T9B70Z Drainage of Bladder with Drainage Device, Via Natural or Artificial Opening (ICD-10-PCS; 2018-07-19)
PROC: 0QS736Z Reposition Left Upper Femur with Intramedullary Internal Fixation Device, Percutaneous Approach (ICD-10-PCS; principal; 2018-07-19 14:30)
PROC: 30233N1 Transfusion of Nonautologous Red Blood Cells into Peripheral Vein, Percutaneous Approach (ICD-10-PCS; 2018-07-21)
PROC: 0W9B3ZZ Drainage of Left Pleural Cavity, Percutaneous Approach (ICD-10-PCS; 2018-07-23)
DX: S72.142A Displaced intertrochanteric fracture of left femur, initial encounter for closed fracture (principal); J96.01 Acute respiratory failure with hypoxia; G93.41 Metabolic encephalopathy; J69.0 Pneumonitis due to inhalation of food and vomit; E43 Unspecified severe protein-calorie malnutrition; S22.089A Unspecified fracture of T11-T12 vertebra, initial encounter for closed fracture; S22.42XA Multiple fractures of ribs, left side, initial encounter for closed fracture; N39.0 Urinary tract infection, site not specified; D61.818 Other pancytopenia; D62 Acute posthemorrhagic anemia; D68.69 Other thrombophilia; E87.0 Hyperosmolality and hypernatremia; I50.32 Chronic diastolic (congestive) heart failure; I82.502 Chronic embolism and thrombosis of unspecified deep veins of left lower extremity; J98.11 Atelectasis; M48.54XA Collapsed vertebra, not elsewhere classified, thoracic region, initial encounter for fracture; N17.9 Acute kidney failure, unspecified; J94.2 Hemothorax; B96.89 Other specified bacterial agents as the cause of diseases classified elsewhere; E03.9 Hypothyroidism, unspecified; E78.00 Pure hypercholesterolemia, unspecified; F02.80 Dementia in other diseases classified elsewhere, unspecified severity, without behavioral disturbance, psychotic disturbance, mood disturbance, and anxiety; G20 Parkinson's disease; G30.9 Alzheimer's disease, unspecified; G89.11 Acute pain due to trauma; I08.1 Rheumatic disorders of both mitral and tricuspid valves; I11.0 Hypertensive heart disease with heart failure; I25.10 Atherosclerotic heart disease of native coronary artery without angina pectoris; I27.20 Pulmonary hypertension, unspecified; I48.2 Chronic atrial fibrillation; K21.9 Gastro-esophageal reflux disease without esophagitis; M47.812 Spondylosis without myelopathy or radiculopathy, cervical region; M81.0 Age-related osteoporosis without current pathological fracture; W06.XXXA Fall from bed, initial encounter; R13.10 Dysphagia, unspecified; R32 Unspecified urinary incontinence; Z51.5 Encounter for palliative care; Z66 Do not resuscitate; Z74.01 Bed confinement status; Z95.1 Presence of aortocoronary bypass graft; Z95.5 Presence of coronary angioplasty implant and graft; Y93.89 Activity, other specified; Y92.89 Other specified places as the place of occurrence of the external cause; Z68.23 Body mass index [BMI] 23.0-23.9, adult
CPT/HCPCS: 32555; 36415; 36600; 70450; 71045; 71275; 72125; 74018; 74340; 76000; 80048; 80053; 81001; 82040; 82803; 82945; 82962; 83615; 83735; 84100; 84155; 84157; 84443; 85014; 85018; 85025; 85379; 85610; 85730; 86022; 86850; 86900; 86923; 87040; 87070; 87077; 87086; 87186; 87205; 89051; 93005; 93306; 93970; 94640; 96361; 96374; 96375; C1713; G0378; J0690; J0696; J1644; J1650; J2270; J2405; J2543; J2704; J3370; J7613; P9047; Q9967; J0360; J1160; J1940; J2370; J7030; J7040; P9016